=== PATIENT | female | born 1980 | race Hispanic/Latino ===

== ENCOUNTER 2020-06-20 17:43 | Emergency (ER) | payer SELFPAY ==
[2020-06-20 20:12] LABS: Absolute Lymphocytes (CBC) 3.2 K/uL (0.7-4.9); Basophils % 0.8 % (0-1.3); Hematocrit 26.5 % (36.0-45.0); Lymphocytes % 23.7 % (15.3-44.8); MPV 9.3 fL (7.6-11.3); RBC Red Blood Cell Count 3.87 M/uL (3.86-4.86)
[2020-06-20 20:17] LABS: Protime INR 0.92
[2020-06-20 20:24] LABS: ALT/SGPT 22 U/L (12-78); AST/SGOT 14 U/L (15-37); Albumin 2.9 g/dL (3.4-5.0); Alkaline Phosphatase 90 U/L (45-117); BUN Blood Urea Nitrogen 16 mg/dL (7-18); Bicarbonate 29 mmol/L (21-32); Bilirubin Direct < 0.1 mg/dL (0-0.2); Bilirubin Total 0.2 mg/dL (0.2-1.0); Glucose Level 184 mg/dL (74-106); Lipase 119 U/L (73-393); Magnesium 2.6 mg/dL (1.8-2.4); Potassium 3.6 mmol/L (3.5-5.1); Protein, Total 6.9 g/dL (6.4-8.2); Sodium Level 139 mmol/L (136-145)
[2020-06-20 20:46] LABS: White Blood Cell Scan OK (OK)
[2020-06-20 20:47] LABS: Blood Morphology Comment NOTED (NOT SEEN); Hypochromasia 1+; Ovalocytes 1+; Platelet Estimate ADEQ
[2020-06-20] MEDS ORDERED: NA CHLORIDE 0.9% 1,000 ML ONE (20:53)
[2020-06-20 21:18] LABS: Urine Blood 3+ (Negative); Urine Glucose Negative (Negative); Urine Protein 1+ (Negative); Urine Specific Gravity 1.015 (1.005-1.030)
--- NOTE | 2020-06-20 21:28 | EDPHYS ---
Physician Documentation [facility] Name: Kehinde Salas Age: 39 yrs Sex: Female : 1980 Arrival Date: 06/20/2020 Time: 17:46 Bed 23 Private MD: JACKY Physician Wallace Chambers HPI: 06/20 19:26 This 39 yrs old Female presents to ER via Ambulatory with complaints of cp Vaginal Bleeding. 19:26 The patient presents with vaginal bleeding that is moderate, with clots. Onset: The cp symptoms/episode began/occurred 1 month(s) ago. Associated signs and symptoms: Pertinent positives: lower abdomen pain, Pertinent negatives: diarrhea, vomiting. The patient's method of control includes nothing. 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 - Social history:: Smoking status: Patient denies any tobacco usage or history of. ROS: 19:28 Eyes: Negative for injury, pain, redness, and discharge. cp 19:28 Constitutional: Negative for body aches, chills, fever, poor PO intake. 19:28 Cardiovascular: Negative for chest pain. 19:28 Respiratory: Negative for cough, shortness of breath, wheezing. 19:28 Abdomen/GI: Positive for abdominal pain, of the right lower quadrant and left lower quadrant, Negative for vomiting, diarrhea, constipation. 19:28 : Positive for vaginal bleeding, Negative for urinary symptoms. 19:28 Neuro: Positive for near syncope, Negative for altered mental status, headache, syncope. 19:28 All other systems are negative. Exam: 19:35 Constitutional: The patient appears in no acute distress, alert, awake, non-toxic, well cp developed, well nourished. 19:35 Head/Face: Normocephalic, atraumatic. cp 19:35 Eyes: Periorbital structures: appear normal, Conjunctiva: normal, no exudate, no injection, Sclera: no appreciated abnormality, Lids and lashes: appear normal, bilaterally. 19:35 ENT: External ear(s): are unremarkable, Nose: is normal, Mouth: Lips: moist, Oral mucosa: moist, Posterior pharynx: is normal, airway is patent. 19:35 Chest/axilla: Inspection: normal, Palpation: is normal, no crepitus, no tenderness. 19:35 Cardiovascular: Rate: normal, Rhythm: regular, Edema: is not appreciated, JVD: is not appreciated. 19:35 Respiratory: the patient does not display signs of respiratory distress, Respirations: normal, no use of accessory muscles, no retractions, labored breathing, is not present, Breath sounds: are clear throughout, no decreased breath sounds. 19:35 Abdomen/GI: Inspection: abdomen appears normal, Bowel sounds: active, all quadrants, Palpation: soft, in all quadrants, mild abdominal tenderness, in the right lower quadrant and left lower quadrant, rebound tenderness, is not appreciated, involuntary guarding, is not appreciated. 19:35 Back: pain, is absent, ROM is normal. 19:35 Skin: cellulitis, is not appreciated, rash can be described as plaque-like, on the back. 19:35 Neuro: Orientation: to person, place \T\ time. Mentation: is normal. Vital Signs: 17:56 BP 135 / 72; Pulse 90; Resp 18 S; Temp 98.4(TE); Pulse Ox 100% on R/A; Weight 99.79 kg ca1 (R); Height 5 ft. 4 in. (162.56 cm) (R); Pain 9/10; 20:34 BP 128 / 83 Supine; Pulse 90; Resp 18; Pulse Ox 100% ; sf 20:36 BP 135 / 87 Sitting; Pulse 95; Pulse Ox 100% ; sf 20:38 BP 118 / 79 Standing; Pulse 91; Pulse Ox 100% ; sf 20:45 BP 111 / 73; Pulse 90; Resp 16; Pulse Ox 100% ; sf 17:56 Body Mass Index 37.76 (99.79 kg, 162.56 cm) ca1 MDM: 18:55 Patient medically screened. cp 21:28 Data reviewed: vital signs, nurses notes, lab test result(s), radiologic studies, cp ultrasound. 21:28 Counseling: I had a detailed discussion with the patient and/or guardian regarding: the cp historical points, exam findings, and any diagnostic results supporting the discharge/admit diagnosis, lab results, radiology results, the need for outpatient follow up, for definitive care, an OB/Gyne specialist, to return to the emergency department if symptoms worsen or persist or if there are any questions or concerns that arise at home. Response to treatment: the patient's symptoms have markedly improved after treatment. 06/20 19:23 Order name: Basic Metabolic Panel cp 06/20 19:23 Order name: CBC with Diff cp 06/20 19:23 Order name: Hepatic Function cp 06/20 19:23 Order name: Lipase cp 06/20 19:23 Order name: PT-INR; Complete Time: 20:42 cp 06/20 19:23 Order name: Ptt, Activated; Complete Time: 20:42 cp 06/20 19:23 Order name: Type And Screen; Complete Time: 21:28 cp 06/20 19:23 Order name: Magnesium; Complete Time: 20:42 cp 06/20 20:42 Interpretation: Abnormal: MG 2.6. cp 06/20 19:24 Order name: Basic Metabolic Panel; Complete Time: 20:42 EDMS 06/20 20:43 Interpretation: Normal except: GLUC 184; GFR 52. cp 06/20 19:24 Order name: CBC with Automated Diff; Complete Time: 21:28 EDMS 06/20 20:43 Interpretation: Normal except: WBC 13.60; HGB 8.5; HCT 26.5; MCV 68.4; MCH 21.9; RDW cp 19.2; NEUT A 9.6. 06/20 19:24 Order name: Liver (Hepatic) Function; Complete Time: 20:42 EDMS 06/20 20:43 Interpretation: Normal except: AST 14; ALB 2.9; GLOB 4.0; A/G 0.7. cp 06/20 19:24 Order name: Lipase; Complete Time: 20:42 EDMS 06/20 20:19 Order name: CBC Smear Scan; Complete Time: 21:28 EDMS 06/20 20:54 Order name: ABO/RH no charge; Complete Time: 21:28 EDMS 06/20 19:23 Order name: IV Saline Lock; Complete Time: 20:06 cp 06/20 19:23 Order name: Labs collected and sent; Complete Time: 20:06 cp 06/20 19:23 Order name: Urine Dipstick-Ancillary (obtain specimen); Complete Time: 21:32 cp 06/20 19:23 Order name: Urine Test (obtain specimen); Complete Time: 21:32 cp 06/20 19:23 Order name: US Transvaginal Study (Probe) cp 06/20 19:23 Order name: Orthostatics; Complete Time: 20:43 cp 06/20 21:17 Order name: Urine Dipstick-Ancillary EDMS 06/20 21:27 Order name: Urine --Ancillary EDMS Administered Medications: 20:30 Drug: NS 0.9% 1000 ml Route: IV; Rate: 1 bolus; Site: right antecubital; sf 21:46 Follow up: IV Status: Completed infusion; IV Intake: 1000ml sf 21:46 Follow up: Response: No adverse reaction sf Disposition: 06/21 08:52 Co-signature as Attending Physician, Wallace Chambers MD I agree with the assessment and irina plan of care. Disposition: 06/20/20 21:27 Discharged to Home. Impression: Anemia in chronic diseases classified elsewhere, Abnormal uterine and vaginal bleeding, unspecified, Dermatitis, unspecified - of back. - Condition is Stable. - Discharge Instructions: Abnormal Uterine Bleeding, Anemia, Nonspecific, Iron-Rich Diet, Rash. - Prescriptions for Provera 5 mg Oral tablet - take 1 tablet by ORAL route once daily for 7 days; 7 tablet. Hydrocortisone 0.5 % Topical Cream - apply 1 application by TOPICAL route every 12 hours As needed apply as directed to rash on back next 7 days; 30 gram. Ferrous Sulfate 325 mg (65 mg Iron) Oral Tablet - take 1 tablet by ORAL route once daily; 30 tablet. - Medication Reconciliation Form, Thank You Letter, Antibiotic Education, Prescription Opioid Use form. - Follow up: Dae Jones MD; When: 2 - 3 days; Reason: Recheck today's complaints. - Problem is new. - Symptoms have improved. Signatures: Dispatcher [employer] EDWallace Suarez MD MD cha Page, Corey, PA PA cp Acob, Cheryl, RN RN ca1 Gurmeet Snyder RN RN sf Corrections: (The following items were deleted from the chart) 06/20 21:47 21:27 06/20/2020 21:27 Discharged to Home. Impression: Anemia in chronic diseases sf classified elsewhere; Abnormal uterine and vaginal bleeding, unspecified; Dermatitis, unspecified - of back. Condition is Stable. Prescriptions for Provera 5 mg Oral tablet - take 1 tablet by ORAL route once daily for 7 days; 7 tablet, Hydrocortisone 0.5 % Topical Cream - apply 1 application by TOPICAL route every 12 hours As needed apply as directed to rash on back next 7 days; 30 gram. and Forms are Medication Reconciliation Form, Thank You Letter, Antibiotic Education, Prescription Opioid Use. Follow up: Dae Jones; When: 2 - 3 days; Reason: Recheck today's complaints. Problem is new. Symptoms have improved. cp
--- NOTE | 2020-06-20 21:28 | ER ---
Nurse's Notes [facility] Name: Kehinde Salas Age: 39 yrs Sex: Female : 1980 Arrival Date: 06/20/2020 Time: 17:46 Bed 23 Private MD: Diagnosis: Anemia in chronic diseases classified elsewhere;Abnormal uterine and vaginal bleeding, unspecified;Dermatitis, unspecified-of back Presentation: 06/20 17:56 Chief complaint: Patient states: It's been almost a month that I have been bleeding ca1 vaginally a lot. Reports general weakness and burning back pain. Coronavirus screen: Client denies travel out of the [place] in the last 14 days. At this time, the client does not indicate any symptoms associated with coronavirus-19. Ebola Screen: Patient negative for fever greater than or equal to 101.5 degrees Fahrenheit, and additional compatible Ebola Virus Disease symptoms Patient denies exposure to infectious person. Patient denies travel to an Ebola-affected area in the 21 days before illness onset. No symptoms or risks identified at this time. Initial Sepsis Screen: Does the patient meet any 2 criteria? No. Patient's initial sepsis screen is negative. Does the patient have a suspected source of infection? No. Patient's initial sepsis screen is negative. Risk Assessment: Do you want to hurt yourself or someone else? Patient reports no desire to harm self or others. Onset of symptoms was June 20, 2020. 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 - Social history:: Smoking status: Patient denies any tobacco usage or history of. Screenin:53 Abuse screen: Denies threats or abuse. Denies injuries from another. Nutritional iw screening: No deficits noted. Tuberculosis screening: No symptoms or risk factors identified. Fall Risk None identified. Assessment: 18:51 General: Appears in no apparent distress. Behavior is calm, cooperative. Pain: iw Complains of pain in left lower quadrant. Neuro: Level of Consciousness is awake, alert, obeys commands, Oriented to person, place, time, situation. Cardiovascular: Patient's skin is warm and dry. Respiratory: Respiratory effort is even, unlabored, Respiratory pattern is regular, symmetrical. : Reports vaginal bleeding that is heavy flow. Derm: Skin is intact, is healthy with good turgor. Musculoskeletal: Range of motion: intact in all extremities. 19:50 General: Appears in no apparent distress. Behavior is calm, cooperative. Neuro: Level sf of Consciousness is awake, alert. Cardiovascular: Patient's skin is warm and dry. Respiratory: Airway is patent Respiratory effort is even, unlabored, Respiratory pattern is regular, symmetrical. 20:02 Reassessment: hvac refrigeration technician got patient up to urinate before exam, did NOT collect a sf sample. Vital Signs: 17:56 BP 135 / 72; Pulse 90; Resp 18 S; Temp 98.4(TE); Pulse Ox 100% on R/A; Weight 99.79 kg ca1 (R); Height 5 ft. 4 in. (162.56 cm) (R); Pain 9/10; 20:34 BP 128 / 83 Supine; Pulse 90; Resp 18; Pulse Ox 100% ; sf 20:36 BP 135 / 87 Sitting; Pulse 95; Pulse Ox 100% ; sf 20:38 BP 118 / 79 Standing; Pulse 91; Pulse Ox 100% ; sf 20:45 BP 111 / 73; Pulse 90; Resp 16; Pulse Ox 100% ; sf 17:56 Body Mass Index 37.76 (99.79 kg, 162.56 cm) ca1 ED Course: 17:46 Patient arrived in ED. as 17:59 Triage completed. ca1 18:00 Arm band placed on right wrist. ca1 18:48 Wallace Ray PA is PHCP. cp 18:48 Deandra Dockery MD is Attending Physician. cp 18:53 Keara Swenson, RN is Primary Nurse. iw 19:03 Gurmeet Snyder, JESICA is Primary Nurse. sf 19:16 Wallace Chambers MD is Attending Physician. cp 19:50 Patient has correct armband on for positive identification. Placed in gown. Bed in low sf position. Call light in reach. Side rails up X 1. Door closed. Noise minimized. Visitors limited. Lights dimmed. Warm blanket given. Verbal reassurance given. 20:00 Initial lab(s) drawn, by me, sent to lab. Inserted saline lock: 20 gauge in right sf antecubital area, using aseptic technique. Blood collected. 20:04 US Transvaginal Study (Probe) Sent. sf 20:06 Basic Metabolic Panel Sent. sf 20:06 CBC with Diff Sent. sf 20:06 Hepatic Function Sent. sf 20:06 Lipase Sent. sf 20:25 Ultrasound complete. sf 20:59 US Transvaginal Study (Probe) In Process Unspecified. EDMS 21:15 Urine collected: clean catch specimen, cloudy, doni colored. sf 21:26 Dae Jones MD is Referral Physician. cp 21:32 Urine --Ancillary Sent. sf 21:47 No provider procedures requiring assistance completed. IV discontinued, intact, sf bleeding controlled, No redness/swelling at site. Pressure dressing applied. Administered Medications: 20:30 Drug: NS 0.9% 1000 ml Route: IV; Rate: 1 bolus; Site: right antecubital; sf 21:46 Follow up: IV Status: Completed infusion; IV Intake: 1000ml sf 21:46 Follow up: Response: No adverse reaction sf Intake: 21:46 IV: 1000ml; Total: 1000ml. sf Outcome: 21:27 Discharge ordered by . cp 21:47 Discharged to home ambulatory. sf 21:47 Condition: stable 21:47 Discharge instructions given to patient, Instructed on discharge instructions, follow up and referral plans. medication usage, by JESICA Geller Demonstrated understanding of instructions, follow-up care, medications, Prescriptions given X 3. 21:47 Patient left the ED. sf Signatures: Dispatcher [employer] Glenna Spencer Irene, RN RN Wallace Mcmanus PA PA cp Acob, Cheryl, RN RN ca1 Fitzpatrick, Steven, RN RN sf
--- NOTE | 2020-06-20 21:37 | RAD REPORT ---
EXAM DESCRIPTION: US - Transvaginal Study Probe - 06/20/2020 8:59 pm CLINICAL HISTORY: Vaginal bleeding COMPARISON: none FINDINGS: The uterus measures 9 x 5 x 5cm. A fibroid is not seen. Nabothian cysts are present within the cervix. The endometrial stripe measures 13 millimeters The ovaries are normal in size and echotexture. The right and left adnexal unremarkable No significant free fluid is seen. IMPRESSION: No significant abnormalities displayed
[2020-06-20 21:56] LABS: Urine Specific Gravity/Preg 1.015 (1.005-1.030)
[2020-06-20 22:21] LABS: Urine pH ND (5.0-7.0)
[2020-06-21 12:07] VITALS: TEMP 98.4; O2SAT 100
[2020-06-21 12:12] VITALS: BP 111/73
== END 2020-06-20 21:47 | disposition home or self-care (01) ==
LOC: ER 17:43
DX: D64.9 Anemia, unspecified (principal); L30.9 Dermatitis, unspecified
CPT/HCPCS: 36415; 76830; 80048; 80076; 81003; 81025; 83690; 83735; 85025; 85610; 85730; 86850; 86900; 86901; 96360; 99284; J7030

== ENCOUNTER 2020-07-25 18:01 | Emergency (ER) | payer SELFPAY ==
[2020-07-25 22:12] LABS: Urine Blood 3+ (Negative); Urine Glucose Negative (Negative); Urine Protein 1+ (Negative); Urine Specific Gravity >=1.030 (1.005-1.030)
[2020-07-25 22:19] LABS: Absolute Lymphocytes (CBC) 3.8 K/uL (0.7-4.9); Basophils % 0.9 % (0-1.3); Hematocrit 32.1 % (36.0-45.0); Lymphocytes % 31.2 % (15.3-44.8); MPV 9.5 fL (7.6-11.3)
[2020-07-25 22:32] LABS: Urine Specific Gravity/Preg >1.030 (1.005-1.030)
[2020-07-25 22:44] LABS: Urine Bacteria >50 /HPF (<20); Urine Mucus 1+ /HPF (NONE SEEN); Urine RBC >50 /HPF (NONE SEEN)
[2020-07-25 22:53] LABS: Anisocytosis 1+; Blood Morphology Comment NOTED (NOT SEEN); Hypochromasia 1+; Macrocytosis 1+; Platelet Estimate ADEQ; White Blood Cell Scan OK (OK)
[2020-07-25] MEDS ORDERED: NA CHLORIDE 0.9% 1,000 ML ONE (23:50)
--- NOTE | 2020-07-26 00:40 | EDPHYS ---
Physician Documentation [facility] Name: Kehinde Salas Age: 40 yrs Sex: Female : 1980 Arrival Date: 07/25/2020 Time: 18:06 Bed 20 Private MD: ED Physician Domingo Ayala HPI: 07/25 23:12 This 40 yrs old Female presents to ER via EMS with complaints of Vaginal mh7 Bleeding. 23:12 The patient presents with vaginal bleeding that is moderate. mh7 23:13 Onset: The symptoms/episode began/occurred 4 day(s) ago. Modifying factors: The mh7 symptoms are alleviated by nothing, the symptoms are aggravated by nothing. Associated signs and symptoms: Pertinent positives: vaginal bleeding, Abdominal pain, Pertinent negatives: constipation, cramping, diarrhea, dyspareunia, dysuria, fever, hematuria, nausea, urinary frequency, vaginal discharge, vomiting. Severity of symptoms: At their worst the symptoms were moderate, 2 day(s) ago, in the emergency department the symptoms have improved, moderately. The patient has experienced similar episodes in the past, multiple times. 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 - Social history:: Smoking status: Patient denies any tobacco usage or history of. ROS: 07/26 00:34 Constitutional: Negative for fever, chills, and weight loss, Eyes: Negative for injury, mh7 pain, redness, and discharge, ENT: Negative for injury, pain, and discharge, Neck: Negative for injury, pain, and swelling, Cardiovascular: Negative for chest pain, palpitations, and edema, Respiratory: Negative for shortness of breath, cough, wheezing, and pleuritic chest pain, Back: Negative for injury and pain, MS/Extremity: Negative for injury and deformity, Skin: Negative for injury, rash, and discoloration, Neuro: Negative for headache, weakness, numbness, tingling, and seizure, Psych: Negative for depression, anxiety, suicide ideation, homicidal ideation, and hallucinations, Allergy/Immunology: Negative for hives, rash, and allergies, Endocrine: Negative for neck swelling, polydipsia, polyuria, polyphagia, and marked weight changes, Hematologic/Lymphatic: Negative for swollen nodes, abnormal bleeding, and unusual bruising. Exam: 00:34 Constitutional: This is a well developed, well nourished patient who is awake, alert, mh7 and in no acute distress. Head/Face: Normocephalic, atraumatic. Eyes: Pupils equal round and reactive to light, extra-ocular motions intact. Lids and lashes normal. Conjunctiva and sclera are non-icteric and not injected. Cornea within normal limits. Periorbital areas with no swelling, redness, or edema. Neck: Trachea midline, no thyromegaly or masses palpated, and no cervical lymphadenopathy. Supple, full range of motion without nuchal rigidity, or vertebral point tenderness. No Meningismus. Chest/axilla: Normal chest wall appearance and motion. Nontender with no deformity. No lesions are appreciated. Cardiovascular: Regular rate and rhythm with a normal S1 and S2. No gallops, murmurs, or rubs. Normal PMI, no JVD. No pulse deficits. Respiratory: Lungs have equal breath sounds bilaterally, clear to auscultation and percussion. No rales, rhonchi or wheezes noted. No increased work of breathing, no retractions or nasal flaring. 00:34 Back: No spinal tenderness. No costovertebral tenderness. Full range of motion. 00:34 Skin: Warm, dry with normal turgor. Normal color with no rashes, no lesions, and no evidence of cellulitis. MS/ Extremity: Pulses equal, no cyanosis. Neurovascular intact. Full, normal range of motion. Neuro: Awake and alert, GCS 15, oriented to person, place, time, and situation. Cranial nerves II-XII grossly intact. Motor strength 5/5 in all extremities. Sensory grossly intact. Cerebellar exam normal. Normal gait. Psych: Awake, alert, with orientation to person, place and time. Behavior, mood, and affect are within normal limits. 00:34 Abdomen/GI: Inspection: abdomen appears normal, Bowel sounds: normal, in all quadrants, Palpation: moderate abdominal tenderness, in the left upper quadrant and left lower quadrant, mass, is not appreciated, rebound tenderness, is not appreciated, voluntary guarding, is not appreciated, involuntary guarding, is not appreciated, no appreciated organomegaly, Rectal exam: the exam is deferred, because of patient request, Indicators: McBurney's point is not tender, Jeffrey's sign is negative, Rovsing's sign is negative, Obturator sign is negative, Psoas sign is negative, Liver: no appreciated palpable abnormalities, Hernia: not appreciated. 00:34 : CVA tenderness, is absent, Pelvic Exam: The exam is refused by the patient/guardian. The risks and consequences are understood by the patient. Vital Signs: 07/25 18:07 BP 117 / 82; Pulse 87; Resp 16; Temp 98.6(O); Pulse Ox 99% ; Weight 88.9 kg; sv 07/26 00:00 BP 118 / 76; Pulse 84; Resp 18; Pulse Ox 99% on R/A; MDM: 00:36 Differential diagnosis: dysmenorrhea, ectopic , kidney stone, [facility] menometrorrhagia, menorrhea, nonspecific abdominal pain, ovarian cyst, urinary tract infection. Data reviewed: vital signs, nurses notes, old medical records, lab test result(s), CBC, electrolytes, urinalysis, UPT: negative radiologic studies, CT scan. Data interpreted: Pulse oximetry: on room air is 99 %. Interpretation: normal. Counseling: I had a detailed discussion with the patient and/or guardian regarding: the historical points, exam findings, and any diagnostic results supporting the discharge/admit diagnosis, lab results, radiology results, the need for outpatient follow up, an highballer, an OB/Gyne specialist, to return to the emergency department if symptoms worsen or persist or if there are any questions or concerns that arise at home. Response to treatment: the patient's symptoms have resolved after treatment, the patient's blood pressure is in an acceptable range, mental status has returned to baseline, the patient no longer shows bradycardia, the patient is not short of breath, the patient is not tachycardic, the patient's pain is gone, the patient's temperature has normalized. 00:39 Patient medically screened. [facility] 07/25 21:54 Order name: Abo/rh Typing; Complete Time: 23:11 07/25 21:54 Order name: Basic Metabolic Panel; Complete Time: 23:10 07/25 21:54 Order name: CBC with Diff; Complete Time: 23:11 07/25 22:12 Order name: Urine Dipstick-Ancillary; Complete Time: 23:11 [facility] 07/25 22:12 Order name: Urine Microscopic Only; Complete Time: 23:11 07/25 22:13 Order name: Urine --Ancillary (enter results) 2 07/25 21:54 Order name: Urine Dipstick-Ancillary (obtain specimen); Complete Time: 22:13 07/25 21:54 Order name: Urine Test (obtain specimen); Complete Time: 22:13 07/25 21:54 Order name: IV Saline Lock; Complete Time: 22:13 07/25 22:14 Order name: Urine --Ancillary; Complete Time: 23:11 [facility] 07/25 22:26 Order name: CBC Smear Scan; Complete Time: 23:11 [facility] 07/25 22:46 Order name: Urine Culture [facility] 07/25 23:12 Order name: CT Abd/Pelvis - IV Contrast Only [facility] 07/25 21:54 Order name: Labs collected and sent; Complete Time: 22:13 07/25 21:54 Order name: NPO; Complete Time: 22:13 Administered Medications: 07/25 23:41 Drug: NS 0.9% 1000 ml Route: IV; Rate: 1000 ml; Site: right antecubital; 07/26 00:56 Follow up: Response: No adverse reaction; IV Status: Completed infusion Disposition: 07/26/20 00:39 Discharged to Home. Impression: Dysfunctional Uterine Bleeding, Abdominal Pain, Urinary tract infection, site not specified. - Condition is Stable. - Discharge Instructions: Dysfunctional Uterine Bleeding, Urinary Tract Infection, Adult, [id number], Abdominal Pain, Adult, [id number]. - Prescriptions for Pyridium 200 mg Oral Tablet - take 1 tablet by ORAL route every 8 hours for 2 days; 6 tablet. Cipro 500 mg Oral Tablet - take 1 tablet by ORAL route every 12 hours for 7 days; 14 tablet. - Medication Reconciliation Form, Thank You Letter, Antibiotic Education, Prescription Opioid Use form. - Follow up: Private Physician; When: 1 - 2 days; Reason: Worsening of condition, Recheck today's complaints, Continuance of care, Re-evaluation by your physician. Follow up: Saba Starr MD; When: 1 - 2 days; Reason: Worsening of condition, Recheck today's complaints. - Problem is an ongoing problem. - Symptoms have improved. Signatures: Dispatcher [employer] EDShi Gallo RN RN Yazan Larson RN RN wh Holmes, Maurice, MD MD mh7 Corrections: (The following items were deleted from the chart) 00:56 00:39 07/26/2020 00:39 Discharged to Home. Impression: Dysfunctional Uterine Bleeding; wh Abdominal Pain; Urinary tract infection, site not specified. Condition is Stable. Forms are Medication Reconciliation Form, Thank You Letter, Antibiotic Education, Prescription Opioid Use. Follow up: Private Physician; When: 1 - 2 days; Reason: Worsening of condition, Recheck today's complaints, Continuance of care, Re-evaluation by your physician. Follow up: Saba Starr; When: 1 - 2 days; Reason: Worsening of condition, Recheck today's complaints. Problem is an ongoing problem. Symptoms have improved. mh7
--- NOTE | 2020-07-26 00:40 | ER ---
Nurse's Notes [facility] Name: Kehinde Salas Age: 40 yrs Sex: Female : 1980 Arrival Date: 07/25/2020 Time: 18:06 Bed 20 Private MD: Diagnosis: Dysfunctional Uterine Bleeding;Abdominal Pain;Urinary tract infection, site not specified Presentation: 07/25 18:07 Chief complaint: Chief complaint: Patient states: vaginal bleeding since Apr 2020. Went sv to see OB MD last month 07/15/20 and he will do an endometrial ablation and gave me a shot of Provera. I stopped bleeding but then I stopped bleeding yesterday. Reports 2 big pads every hour, which is how it was before she was bleeding. Today she was asleep and they had a hard time waking her up. c/o generalized weakness and fatigue. Coronavirus screen: Client denies travel out of the [place] in the last 14 days. At this time, the client does not indicate any symptoms associated with coronavirus-19. Ebola Screen: No symptoms or risks identified at this time. Risk Assessment: Do you want to hurt yourself or someone else? Patient reports no desire to harm self or others. Onset of symptoms was April 2020. 18:07 Method Of Arrival: EMS: [facility] 18:07 Acuity: SAW 3 sv 18:07 Initial Sepsis Screen: Does the patient meet any 2 criteria? No. Patient's initial sv sepsis screen is negative. Does the patient have a suspected source of infection? No. Patient's initial sepsis screen is negative. 18:14 Care prior to arrival: IV initiated. 20 GA, in the right antecubital area. sv Triage Assessment: 18:14 General: Appears in no apparent distress. uncomfortable, well developed, Behavior is sv calm, cooperative, appropriate for age. Neuro: Level of Consciousness is awake, alert, obeys commands, Oriented to person, place, time, situation. Respiratory: Airway is patent Respiratory effort is even, unlabored, Respiratory pattern is regular, symmetrical. 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 - Social history:: Smoking status: Patient denies any tobacco usage or history of. Screenin:00 Abuse screen: Denies threats or abuse. Denies injuries from another. Nutritional wh screening: No deficits noted. Tuberculosis screening: No symptoms or risk factors identified. Fall Risk None identified. Assessment: 22:30 General: Appears in no apparent distress. Behavior is calm, cooperative, appropriate wh for age. Pain: Complains of pain in suprapubic area and left lower quadrant. Neuro: Level of Consciousness is awake, alert, obeys commands, Oriented to person, place, time, situation, Appropriate for age. Cardiovascular: Capillary refill < 3 seconds. Respiratory: Airway is patent Respiratory effort is even, unlabored, Respiratory pattern is regular, symmetrical. GI: Abdomen is flat, non-distended, Abd is soft Abd is non tender Reports lower abdominal pain. : Reports vaginal bleeding that is. : Reports vaginal bleeding that is since yesterday. EENT: No signs and/or symptoms were reported regarding the EENT system. Derm: Skin is intact, is healthy with good turgor, Skin is pink, warm \T\ dry. normal. Musculoskeletal: Circulation, motion, and sensation intact. 07/26 00:26 Reassessment: Patient appears in no apparent distress at this time. No changes from previously documented assessment. Patient and/or family updated on plan of care and expected duration. Pain level reassessed. Patient is alert, oriented x 3, equal unlabored respirations, skin warm/dry/pink. Vital Signs: 07/25 18:07 BP 117 / 82; Pulse 87; Resp 16; Temp 98.6(O); Pulse Ox 99% ; Weight 88.9 kg; sv 07/26 00:00 BP 118 / 76; Pulse 84; Resp 18; Pulse Ox 99% on R/A; ED Course: 07/25 18:06 Patient arrived in ED. ds1 18:07 Arm band placed on. sv 18:11 Triage completed. sv 21:49 Domingo Ayala MD is Attending Physician. mh7 21:52 Yazan Larson, JESICA is Primary Nurse. 23:00 Patient has correct armband on for positive identification. Bed in low position. Call light in reach. Side rails up X 1. Pulse ox on. NIBP on. 23:30 Maintain EMS IV. Dressing intact. Good blood return noted. 07/26 00:13 CT Abd/Pelvis - IV Contrast Only In Process Unspecified. EDMS 00:38 Saba Starr MD is Referral Physician. [facility] 00:55 No provider procedures requiring assistance completed. IV discontinued, intact, bleeding controlled, No redness/swelling at site. Administered Medications: 07/25 23:41 Drug: NS 0.9% 1000 ml Route: IV; Rate: 1000 ml; Site: right antecubital; 07/26 00:56 Follow up: Response: No adverse reaction; IV Status: Completed infusion Outcome: 00:39 Discharge ordered by MD. 7 00:56 Discharged to home ambulatory, with friend. 00:56 Condition: stable 00:56 Discharge instructions given to patient, family, Instructed on discharge instructions, follow up and referral plans. medication usage, POC Demonstrated understanding of instructions, follow-up care, medications, POC Prescriptions given X 2. 00:56 Patient left the ED. Signatures: Dispatcher [employer] EDTN Shi Laureano RN RN sv Sanford, Demi ds1 Yazan Larson RN RN Domingo Ayala MD MD 7 Corrections: (The following items were deleted from the chart) 07/25 18:14 18:07 88.9 kg; sv sv 18:15 18:07 Pulse 87bpm; Resp 16bpm; Pulse Ox 99%; Temp 98.6F Oral; 88.9 kg; sv sv
[2020-07-26 01:10] VITALS: BP 118/76; O2SAT 99
[2020-07-26 01:12] VITALS: TEMP 98.6
--- NOTE | 2020-07-26 15:06 | RAD REPORT ---
EXAM DESCRIPTION: Abdomen Pelvis W Contrast RadLex: CT ABDOMEN PELVIS WITH IV CONTRAST CLINICAL HISTORY: ABD PAIN. COMPARISON: None. TECHNIQUE: CT of the abdomen and pelvis was performed following intravenous administration of iodina tai contrast. Arterial phase images through the abdomen, and portal venous phase images through the a bdomen and pelvis were obtained. Oral contrast was not administered. Axial, coronal, and sagittal sof t tissue window reconstructions were created and sent to PACS. This exam was performed according to our departmental dose-optimization program, which includes autom ated exposure control, adjustment of the mA and/or kV according to patient size and/or use of iterati ve reconstruction technique. FINDINGS: Thoracic: No significant abnormality. Hepatobiliary: Faint hypodense lesion in the inferior right hepatic lobe, measuring approximately 3.3 cm in size (axial series 3 image 35), becoming more isodense on the delayed images, favored to repre sent a benign hemangioma. No concerning hepatic lesion identified. The hepatic and portal veins are p atent. The gallbladder is unremarkable. No biliary ductal dilatation. Pancreas: Unremarkable. Spleen: Unremarkable. Gastrointestinal: No evidence of bowel obstruction or perienteric inflammation. The appendix is olimpia l. Small to moderate amount of fecal material throughout the colon. Adrenals: Mild thickening of the right adrenal gland, with a few punctate calcifications. No abnormal ity identified in the left adrenal gland. Renal: No concerning parenchymal abnormality in either kidney. No hydronephrosis or urolithiasis. Bladder/Reproductive: Unremarkable appearance of the urinary bladder by CT technique. Unremarkable CT appearance of the uterus and ovaries. Vascular/Lymphatics: No lymphadenopathy identified by CT size criteria. Abdominal aorta is normal in caliber. The major visceral vessels are patent. Musculoskeletal: No concerning osseous lesion identified. Fluid / peritoneum: No significant free fluid. No free intraperitoneal air identified. IMPRESSION 1. No acute abdominal or pelvic pathology identified. 2. Faint hypodense lesion in the inferior right hepatic lobe, measuring approximately 3.3 cm in siz e, favored to represent a benign hemangioma. Consider correlation with nonemergent ultrasound. 3. Mild thickening of the right adrenal gland with a few punctate calcifications, possibly sequela of remote prior hemorrhage. Electronically signed by: Jenny Bob MD 07/26/2020 12:22 AM CDT Due to temporary technical issues with the PACS/Fluency reporting system, reports are being signed by the in house radiologists without review as a courtesy to insure prompt reporting. The interpreting radiologist is fully responsible for the content of the report.
== END 2020-07-26 00:56 | disposition home or self-care (01) ==
LOC: ER 18:01
DX: N93.8 Other specified abnormal uterine and vaginal bleeding (principal); N39.0 Urinary tract infection, site not specified
CPT/HCPCS: 36415; 74177; 80048; 81003; 81015; 81025; 85025; 86900; 86901; 87086; 87088; 96360; 99284; J7030; Q9967

== ENCOUNTER 2021-09-17 21:19 | Emergency (ER) | payer SELFPAY ==
[2021-09-17 21:53] LABS: Urine Blood Negative (Negative); Urine Glucose Negative (Negative); Urine Protein Negative (Negative)
[2021-09-17] MEDS ORDERED: FENTANYL CITR 100 MCG/2 ML ONE (21:57)
[2021-09-17] MEDS ORDERED: NA CHLORIDE 0.9% 1,000 ML ONE (21:57)
[2021-09-17] MEDS ORDERED: ONDANSETRON 4 MG/2 ML VIAL ONE (21:57)
[2021-09-17 22:08] LABS: Absolute Lymphocytes (CBC) 4.4 K/uL (0.7-4.9); Hematocrit 39.7 % (36.0-45.0); Lymphocytes % 38.1 % (15.3-44.8); MCV 83.6 fL (80-100); MPV 10.4 fL (7.6-11.3); RBC Red Blood Cell Count 4.75 M/uL (3.86-4.86)
[2021-09-17 22:24] LABS: Albumin 3.5 g/dL (3.4-5.0); Bilirubin Total 0.2 mg/dL (0.2-1.0); Potassium 3.7 mmol/L (3.5-5.1); Protein, Total 6.6 g/dL (6.4-8.2)
[2021-09-17 22:56] LABS: Urine Bacteria 20-50 /HPF (<20); Urine RBC <5 /HPF (NONE SEEN)
--- NOTE | 2021-09-18 02:13 | EDPHYS ---
Physician Documentation [facility] Name: Kehinde Salas Age: 41 yrs Sex: Female : 1980 Arrival Date: 09/17/2021 Time: 21:21 Bed 15 Private MD: ED Physician Windy Michael HPI: 09/17 23:18 This 41 yrs old Female presents to ER via Ambulatory with complaints of kb Abdominal Pain. 23:18 The patient presents with abdominal pain right lower quadrant. Onset: The kb symptoms/episode began/occurred 1 week(s) ago. The symptoms do not radiate. Associated signs and symptoms: Pertinent positives: nausea, Pertinent negatives: fever, vomiting. The symptoms are described as constant. Modifying factors: The symptoms are alleviated by nothing, the symptoms are aggravated by pressure. Severity of pain: At its worst the pain was moderate in the emergency department the pain is unchanged. The patient has not experienced similar symptoms in the past. The patient has not recently seen a physician. Pt reports RLQ pain for one week got worse yesterday. . 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 - Social history:: Smoking status: Patient denies any tobacco usage or history of. Patient/guardian denies using alcohol. ROS: 23:18 Constitutional: Negative for fever, chills, and weight loss. kb 23:18 Abdomen/GI: Positive for abdominal pain, nausea. 23:18 All other systems are negative. Exam: 23:18 Constitutional: This is a well developed, well nourished patient who is awake, alert, kb and in no acute distress. Head/Face: Normocephalic, atraumatic. ENT: Moist Mucous membranes Cardiovascular: Regular rate and rhythm with a normal S1 and S2. No gallops, murmurs, or rubs. No pulse deficits. Respiratory: Respirations even and unlabored. No increased work of breathing. Talking in full sentences Skin: Warm, dry with normal turgor. Normal color. MS/ Extremity: Pulses equal, no cyanosis. Neurovascular intact. Full, normal range of motion. Neuro: Awake and alert, GCS 15, oriented to person, place, time, and situation. Moves all extremities. Normal gait. Psych: Awake, alert, with orientation to person, place and time. Behavior, mood, and affect are within normal limits. 23:18 Abdomen/GI: Inspection: abdomen appears normal, Bowel sounds: normal, in all quadrants, Palpation: soft, in all quadrants, moderate abdominal tenderness, in the right lower quadrant. Vital Signs: 21:31 BP 107 / 64; Pulse 88; Resp 18; Temp 97.6(O); Pulse Ox 99% on R/A; Weight 81.65 kg; ld1 Height 5 ft. 6 in. (167.64 cm); Pain 10/10; 22:51 BP 100 / 62; Pulse 71; Resp 17 S; Pulse Ox 100% on R/A; lg3 09/18 02:11 BP 121 / 61; Pulse 60; Resp 17 S; Pulse Ox 100% on R/A; lg3 09/17 21:31 Body Mass Index 29.05 (81.65 kg, 167.64 cm) ld1 MDM: 09/17 21:26 Patient medically screened. 23:19 Data reviewed: vital signs, nurses notes. Data interpreted: Pulse oximetry: on room air kb is 100 %. Interpretation: normal. 09/18 00:47 Awaiting: CT scan results. Transition of care: After a detail discussion of the kb patient's case, care is transferred to Windy Michael MD. 09/17 21:35 Order name: CBC with Diff; Complete Time: 22:34 kb 09/17 21:35 Order name: CMP; Complete Time: 22:34 kb 09/17 21:35 Order name: Lipase; Complete Time: 22:34 kb 09/17 21:53 Order name: Urine Dipstick-Ancillary; Complete Time: 21:56 EDMS 09/17 21:55 Order name: Urine Microscopic Only; Complete Time: 22:59 ds4 09/17 21:55 Order name: Urine --Ancillary (enter results); Complete Time: 22:34 ds4 09/17 21:35 Order name: CT Abd/Pelvis - IV Contrast Only kb 09/17 21:35 Order name: IV Saline Lock; Complete Time: 21:46 kb 09/17 21:35 Order name: Labs collected and sent; Complete Time: 21:46 kb 09/17 22:59 Order name: Urine Culture EDTN 09/17 21:35 Order name: Urine Dipstick-Ancillary (obtain specimen); Complete Time: 21:55 kb 09/17 21:35 Order name: Urine Test (obtain specimen); Complete Time: 21:55 kb Administered Medications: 09/17 21:35 CANCELLED (Other Intervention Used): morphine 2 mg IVP once over 4 mins kb 21:55 Drug: fentaNYL (PF) 25 mcg Route: IVP; Site: right antecubital; lg3 21:55 Follow up: Response: No adverse reaction lg3 21:56 Drug: NS 0.9% 1000 ml Route: IV; Rate: 1 bolus; Site: right antecubital; lg3 09/18 02:11 Follow up: Response: No adverse reaction; IV Status: Completed infusion; IV Intake: lg3 1000ml 09/17 21:56 Drug: Zofran (Ondansetron) 4 mg Route: IVP; Site: right antecubital; lg3 21:56 Follow up: Response: No adverse reaction lg3 Disposition: 09/18 02:11 I agree with the assessment and plan of care. sp3 Disposition Summary: 09/18/21 02:12 Discharge Ordered Location: Home sp3 Condition: Stable sp3 Diagnosis - Other ovarian cysts sp3 Followup: sp3 - With: Private Physician - When: As needed - Reason: Re-evaluation by your physician Discharge Instructions: - Discharge Summary Sheet sp3 - Ovarian Cyst sp3 Forms: - Medication Reconciliation Form sp3 - Thank You Letter sp3 - Antibiotic Education sp3 - Prescription Opioid Use sp3 Prescriptions: - Diclofenac Sodium 75 mg Oral Tablet Sustained Release - take 1 tablet by ORAL route 2 times per day; 30 tablet; Refills: 0, Product sp3 Selection Permitted Signatures: Dispatcher [employer] EDMS Cally Smith FNP-C FNP-Elma Keenan RN RN lg3 Loulou Angel RN RN ld1 Windy Michael MD MD sp3 Corrections: (The following items were deleted from the chart) 09/17 21:35 21:35 morphine 2 mg IVP once over 4 mins ordered. kb kb
--- NOTE | 2021-09-18 02:13 | ER ---
Nurse's Notes [facility] Name: Kehinde Salas Age: 41 yrs Sex: Female : 1980 Arrival Date: 09/17/2021 Time: 21:21 Bed 15 Private MD: Diagnosis: Other ovarian cysts Presentation: 09/17 21:31 Chief complaint: Patient states: RLQ pain X 1 week. Nausea. Worse for the past two ld1 days. Coronavirus screen: At this time, the client does not indicate any symptoms associated with coronavirus-19. Ebola Screen: No symptoms or risks identified at this time. Initial Sepsis Screen: Does the patient meet any 2 criteria? No. Patient's initial sepsis screen is negative. Does the patient have a suspected source of infection? No. Patient's initial sepsis screen is negative. Risk Assessment: Do you want to hurt yourself or someone else? Patient reports no desire to harm self or others. Onset of symptoms was September 17, 2021. 21:31 Method Of Arrival: Ambulatory ld1 21:31 Acuity: SAW 3 ld1 Triage Assessment: 21:32 General: Appears in no apparent distress. comfortable, Behavior is calm, cooperative, ld1 appropriate for age. Pain: Complains of pain in right lower quadrant Pain does not radiate. Pain currently is 10 out of 10 on a pain scale. Quality of pain is described as sharp, shooting, stabbing, throbbing. EENT: No signs and/or symptoms were reported regarding the EENT system. Neuro: Level of Consciousness is awake, alert, obeys commands, Oriented to person, place, time, situation. Cardiovascular: Capillary refill < 3 seconds Patient's skin is warm and dry. Respiratory: Airway is patent Respiratory effort is even, unlabored. GI: Abdomen is round non-distended, Reports lower abdominal pain, nausea. 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 - Social history:: Smoking status: Patient denies any tobacco usage or history of. Patient/guardian denies using alcohol. Screenin:57 Abuse screen: Denies threats or abuse. Denies injuries from another. Nutritional lg3 screening: No deficits noted. Tuberculosis screening: No symptoms or risk factors identified. Fall Risk None identified. Assessment: 21:57 General: Appears in no apparent distress. uncomfortable, Behavior is calm, cooperative. lg3 Pain: Complains of pain in right lower quadrant. Neuro: No deficits noted. Level of Consciousness is awake, alert, obeys commands, Oriented to person, place, time, situation. Cardiovascular: No deficits noted. Denies chest pain, shortness of breath. Respiratory: No deficits noted. Airway is patent Trachea midline Respiratory effort is even, unlabored, Respiratory pattern is regular, symmetrical. GI: Abdomen is round non-distended, Bowel sounds present X 4 quads. Abd is soft X 4 quads Abdomen is tender to palpation in right upper quadrant and right lower quadrant. : No deficits noted. No signs and/or symptoms were reported regarding the genitourinary system. EENT: No deficits noted. No signs and/or symptoms were reported regarding the EENT system. Derm: No deficits noted. No signs and/or symptoms reported regarding the dermatologic system. Skin is intact, is healthy with good turgor, Skin is dry, Skin temperature is warm. Musculoskeletal: No deficits noted. No signs and/or symptoms reported regarding the musculoskeletal system. Circulation, motion, and sensation intact. Range of motion: intact in all extremities. 22:51 Reassessment: Patient appears in no apparent distress at this time. No changes from lg3 previously documented assessment. Patient and/or family updated on plan of care and expected duration. Pain level reassessed. Patient is alert, oriented x 3, equal unlabored respirations, skin warm/dry/pink. 09/18 00:05 Reassessment: Patient appears in no apparent distress at this time. No changes from lg3 previously documented assessment. Patient and/or family updated on plan of care and expected duration. Pain level reassessed. Patient is alert, oriented x 3, equal unlabored respirations, skin warm/dry/pink. 02:11 Reassessment: Patient appears in no apparent distress at this time. No changes from lg3 previously documented assessment. Patient and/or family updated on plan of care and expected duration. Pain level reassessed. Patient is alert, oriented x 3, equal unlabored respirations, skin warm/dry/pink. Vital Signs: 09/17 21:31 BP 107 / 64; Pulse 88; Resp 18; Temp 97.6(O); Pulse Ox 99% on R/A; Weight 81.65 kg; ld1 Height 5 ft. 6 in. (167.64 cm); Pain 10/10; 22:51 BP 100 / 62; Pulse 71; Resp 17 S; Pulse Ox 100% on R/A; lg3 09/18 02:11 BP 121 / 61; Pulse 60; Resp 17 S; Pulse Ox 100% on R/A; lg3 09/17 21:31 Body Mass Index 29.05 (81.65 kg, 167.64 cm) ld1 ED Course: 09/17 21:21 Patient arrived in ED. bp1 21:22 Cally Smith FNP-C is [facility]. kb 21:22 Windy Michael MD is Attending Physician. kb 21:32 Triage completed. ld1 21:32 Arm band placed on right wrist. ld1 21:40 Elma Johnson, RN is Primary Nurse. lg3 21:46 CBC with Diff Sent. lg3 21:46 CMP Sent. lg3 21:46 Lipase Sent. lg3 21:47 Inserted saline lock: 20 gauge in right antecubital area, using aseptic technique. lg3 Blood collected. 21:57 Patient has correct armband on for positive identification. Bed in low position. Call lg3 light in reach. Side rails up X 1. Client placed on continuous cardiac and pulse oximetry monitoring. NIBP monitoring applied. Door closed. Noise minimized. Warm blanket given. Family accompanied patient. 22:01 Urine Microscopic Only Sent. lg3 22:01 Urine --Ancillary (enter results) Sent. lg3 22:45 CT Abd/Pelvis - IV Contrast Only In Process Unspecified. EDMS 09/18 02:12 No provider procedures requiring assistance completed. IV discontinued, intact, lg3 bleeding controlled, No redness/swelling at site. Pressure dressing applied. Administered Medications: 09/17 21:35 CANCELLED (Other Intervention Used): morphine 2 mg IVP once over 4 mins kb 21:55 Drug: fentaNYL (PF) 25 mcg Route: IVP; Site: right antecubital; lg3 21:55 Follow up: Response: No adverse reaction lg3 21:56 Drug: NS 0.9% 1000 ml Route: IV; Rate: 1 bolus; Site: right antecubital; lg3 09/18 02:11 Follow up: Response: No adverse reaction; IV Status: Completed infusion; IV Intake: lg3 1000ml 09/17 21:56 Drug: Zofran (Ondansetron) 4 mg Route: IVP; Site: right antecubital; lg3 21:56 Follow up: Response: No adverse reaction lg3 Medication: 09/18 02:13 VIS not applicable for this client. lg3 Intake: 02:11 IV: 1000ml; Total: 1000ml. lg3 Outcome: 02:12 Discharge ordered by . sp3 02:22 Discharged to home ambulatory, with family. lg3 02:22 Condition: stable 02:22 Discharge instructions given to patient, family, Instructed on discharge instructions, follow up and referral plans. medication usage, Demonstrated understanding of instructions, follow-up care, medications, Prescriptions given X 1. 02:23 Patient left the ED. lg3 Signatures: Dispatcher [employer] EDMS Cally Smith, STORES ASSISTANT-C STORES ASSISTANT-CkElma Sneed, JESICA RN lg3 Areli Mike Lauren, JESICA RN ld1 Windy Michael MD MD sp3
[2021-09-18 02:31] VITALS: TEMP 97.6
[2021-09-18 02:33] VITALS: O2SAT 100
[2021-09-18 02:34] VITALS: BP 121/61
--- NOTE | 2021-09-18 16:17 | RAD REPORT ---
EXAM DESCRIPTION: CT - Abdomen Pelvis W Contrast - 09/18/2021 6:18 am CLINICAL HISTORY: Abdominal pain COMPARISON: 07/26/2020 TECHNIQUE: CT of the abdomen and pelvis performed following IV administration of iodinated contras t. This exam was performed according to our departmental dose-optimization program, which includes au tomated exposure control, adjustment of the mA and/or kV according to patient size and/or use of iter ative reconstruction technique. FINDINGS: Lung Bases: The visualized lung bases are clear. Bones: No destructive bone lesions identified. Abdomen: Liver: The liver has normal size and density. No intrahepatic biliary dilatation. Gallbladder: No calcified gallstones. Spleen, Pancreas, and Adrenal Glands: Stable punctate calcifications thickening of jejunal glands. No follow-up imaging recommended. Left adrenal gland, spleen, pancreas are unremarkable. Kidneys: No hydronephrosis or obstructing calculus. Vasculature: The aorta and IVC have normal caliber and position. The portal vein is patent. The pro ximal visceral and renal arteries are patent. Stomach: Mild wall thickening stomach. Other: No free intraperitoneal air. No free fluid or lymphadenopathy. Tiny fat-containing umbilic al hernia. Pelvis: Bladder: Urinary bladder is unremarkable. Bowel: No dilated loops of large or small bowel. Appendix: Normal appendix. Pelvis: Possible bicornuate appearance of the uterus. Nabothian cysts in the cervix. 2.0 cm right ova jovana cyst. IMPRESSION: 1. Mild wall thickening of the stomach. This could be seen with gastritis. 2. 2.0 cm benign appearing right ovarian cyst. No follow-up imaging recommended. Electronically signed by: Kang Cruz 09/18/2021 2:00 AM CDT Due to temporary technical issues with the PACS/Fluency reporting system, reports are being signed by the in house radiologists without review as a courtesy to insure prompt reporting. The interpreting radiologist is fully responsible for the content of the report.
== END 2021-09-18 02:23 | disposition home or self-care (01) ==
LOC: ER 21:19
DX: N83.299 Other ovarian cyst, unspecified side (principal)
CPT/HCPCS: 36415; 74177; 80053; 81003; 81015; 81025; 83690; 85025; 87077; 87086; 87088; 87186; 96361; 96374; 96375; 99284; J2405; J3010; J7030; Q9967